=== PATIENT | male | born 1940 | race Caucasian/White ===

== ENCOUNTER 2018-05-04 14:40 | Emergency (ER) | payer MEDICARE, SELFPAY ==
[2018-05-04 14:51] VITALS: BP 88/48; PULSE 59; RESP 16; TEMP 36.9; O2SAT 96
--- NOTE | 2018-05-04 15:01 | DI.CT.S_ITS ---
PROCEDURE: CT HEAD/BRAIN WO CON INDICATIONS: Fall, dizzy. TECHNIQUE: Noncontrast 4.5 mm thick angled axial sections acquired from the foramen magnum to the vertex, with coronal and sagittal reformats. For radiation dose reduction, the following was used: automated exposure control, adjustment of mA and/or kV according to patient size. COMPARISON: [facility], CT, CT HEAD WITHOUT CONTRAST, 03/04/2018, 17:44. FINDINGS: Image quality: Suboptimal related to motion artifact on the upper portion of the brain.. CSF spaces: Basal cisterns are patent. No extra-axial fluid collections. Ventricles are prominent in size with corresponding parenchymal volume loss. This appearance is similar to the prior study. Septum pellucidum et vergae is noted. Brain: No midline shift. No intracranial masses or hemorrhage. Chapman-white matter interface is normal. Moderate sized areas of low attenuation are seen within the periventricular white matter of the supratentorial brain. Skull and face: Calvarium and visualized facial bones are intact, without suspicious lesions. 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 Sinuses: Visualized sinuses and mastoids are clear. IMPRESSION: 1. No acute intracranial hemorrhage. 2. Moderate chronic small vessel ischemic changes and parenchymal volume loss are similar to the prior study. Dictated by: Star Dodd M.D. on 05/04/2018 at 14:33 Approved by: Star Dodd M.D. on 05/04/2018 at 14:35
[2018-05-04 15:21] LABS: Add Manual Diff / Slide Review NO; Basophils Percent Auto 1.2 % (0-2); Hematocrit 31.9 % (41-53); Hemoglobin 11.1 g/dL (13.5-17.5); Lymphocytes Percent Auto 43.7 % (25-40); Mean Corpuscular HGB Conc 34.7 % (30-36); Mean Corpuscular Hemoglobin 33.7 PG (26-34); Mean Corpuscular Volume 97.1 fL (80-100); Monocytes Percent Auto 10.7 % (3-14); Neutrophils Absolute Auto 1300 /uL (3000-5900); Neutrophils Percent Auto 43.4 % (50-75); Platelet Count 208 X10^3/uL (150-400); Red Blood Cell Count 3.29 X10^6/uL (4.5-5.9); Red Cell Distribution Width 14.6 % (11.6-14.8); White Blood Cell Count 2.9 X10^3/uL (4.5-11.0)
[2018-05-04 15:27] LABS: INR 1.1 (0.9-1.3)
[2018-05-04 15:30] LABS: PTT Partial Thromboplastin Tim 36 SECONDS (26.4-36.2)
[2018-05-04 15:31] VITALS: BP 123/62; PULSE 61; RESP 15; O2SAT 97
[2018-05-04 15:33] LABS: Alanine Aminotransferase 24 IU/L (21-72); Albumin 3.8 g/dL (3.5-5.0); Albumin Globulin Ratio 1.2 (1.0-2.8); Alkaline Phosphatase 92 U/L (38-126); Aspartate Aminotransferase 32 IU/L (17-59); BUN Creatinine Ratio 6.7 (6-22); Bilirubin Total 1.3 mg/dL (0.2-1.3); Blood Urea Nitrogen 4 mg/dL (9-20); Calcium 8.7 mg/dL (8.4-10.2); Carbon Dioxide 21 mmol/L (22-32); Chloride 91 mmol/L (98-107); Estimated Glomerular Filt Rate > 60.0 mL/min (>60); Globulin 3.3 g/dL (1.7-4.1); Glucose 85 mg/dL (80-110); HEMOLYSIS 42 (0-50); Potassium 4.4 mmol/L (3.4-5.1); Sodium 128 mmol/L (137-145); Total Protein 7.1 g/dL (6.3-8.2)
[2018-05-04 15:40] LABS: Ethanol (ETOH) 397 mg/dL
[2018-05-04 16:09] VITALS: BP 93/46; PULSE 62; RESP 24; O2SAT 99
[2018-05-04 16:44] VITALS: BP 103/42; PULSE 62; RESP 15; O2SAT 98
--- NOTE | 2018-05-04 16:47 | ED_ITS ---
HPI - Fall General Chief Complaint: Fall Stated Complaint: Syncope Time Seen by Provider: 05/04/18 15:00 Source: patient and EMS Mode of arrival: EMS Limitations: other History of Present Illness HPI Narrative: Patient is a 77-year-old male found down, without signs of trauma. He is an extremely poor historian. He a friend supposedly called on 911. The medics report on alcohol on board. Patient is not giving up a lot of information. He denies any pain. He says the friend that called is mad at him. He has no complaints. He admits to drinking 3 beers. Related Data Home Medications Medication Instructions Recorded Confirmed brimonidine-timolol [Combigan] 1 drp OPHTH HS #0 09/26/16 05/04/18 timolol maleate [Timoptic] 1 drp OPHTH QDAY #0 09/26/16 05/04/18 famotidine 40 mg PO BID 05/04/18 05/04/18 latanoprost 1 drp OPHTHALMIC (EYE) DIRECTED 05/04/18 05/04/18 Allergies Allergy/AdvReac Type Severity Reaction Status Date / Time No Known Drug Allergies Allergy Verified 05/04/18 14:49 Review of Systems Constitutional Denies body ache(s), Denies fever(s) and Denies weakness Eyes Denies change in vision, Denies eye discharge, Denies irritation and Denies loss of vision ENT Ears, Nose, Mouth, and Throat: Denies change in voice, Denies neck pain and Denies sore throat Cardiovascular Denies chest pain, Denies irregular heart rhythm, Denies lightheadedness, Denies palpitations, Denies dyspnea, Denies dyspnea on exertion and Denies orthopnea Respiratory Denies cough, Denies dyspnea, Denies dyspnea on exertion and Denies wheezing Gastrointestinal Gastrointestinal: Denies abdominal pain, Denies change in bowel habits, Denies diarrhea, Denies nausea and Denies vomiting Musculoskeletal Denies neck pain Integumentary/Breasts Denies pruritus, Denies erythema, Denies rash and Denies wounds Neurologic Denies loss of vision and Denies weakness Endocrine Denies palpitations Allergic/Immunologic Denies wheezing Exam Initial Vital Signs Initial Vital Signs: Vital Signs Temperature 98.4 F 05/04/18 14:51 Pulse Rate 59 L 05/04/18 14:51 Respiratory Rate 16 05/04/18 14:51 Blood Pressure 88/48 L 05/04/18 14:51 Pulse Oximetry 96 05/04/18 14:51 Const General: cooperative and well developed Nutritional Appearance: average body habitus [facility] Head: normocephalic and atraumatic Ears: external ears normal Face and sinus: face symmetric Mouth: moist mucous membranes Eyes General: appearance normal, both eyes and all related structures Pupils: PERRL EOM: EOM intact bilaterally Neck Neck: normal visual inspection, trachea midline, No lymphadenopathy, No midline deformity and No JVD Chest Chest: normal inspection of the chest Resp Effort & Inspection: normal respiratory effort, able to speak in complete sentences, no respiratory distress and no use of accessory muscles Auscultation: clear to auscultation bilaterally, no rales, no rhonchi and no wheezes Cardio Rate: regular rate Rhythm: regular rhythm Heart Sounds: no click, no gallops, no murmurs and no rubs Pulses: normal peripheral pulses Back/Spine/Pelvis Back: No CVA tenderness Cervical Spine: cervical ROM normal and No pain with cervical ROM Thoracic/Lumbar Spine: thoracic and lumbar spine normal to inspection Skin General: no rashes or lesions noted, No jaundice and No petechiae Neuro General: alert, awake and oriented x3 Cranial Nerves: CN's II-XI intact bilaterally Speech: speech normal Gait: normal gait Motor: muscle tone normal throughout Extrem General: full ROM, no clubbing, cyanosis or edema and no pedal edema Right upper extremity: normal to inspection Left upper extremity: normal to inspection Right lower extremity: normal to inspection Left lower extremity: normal to inspection [facility] Social History Smoking Status: Unknown if ever smoked alcohol intake: current Course Orders Ordered: Discontinued Medications Sodium Chloride (Normal Saline 0.9%) 1,000 mls @ 150 mls/hr IV CONT THERON Last Admin: 05/04/18 17:30 Dose: Vital Signs - 8 hr 05/04/18 14:51 05/04/18 15:31 05/04/18 16:09 Temperature 98.4 F Pulse Rate 59 L 61 62 Respiratory Rate 16 15 24 Blood Pressure 88/48 L Blood Pressure [Right Arm] 123/62 H 93/46 L Pulse Oximetry 96 97 99 05/04/18 16:44 05/04/18 17:13 Temperature Pulse Rate 62 64 Respiratory Rate 15 13 Blood Pressure Blood Pressure [Right Arm] 103/42 L 109/54 L Pulse Oximetry 98 99 MDM - Fall Lab Data Attestation: I reviewed the patient's lab results. Result diagrams: 05/04/18 14:30 05/04/18 14:30 Lab Results 05/04/18 05/04/18 05/04/18 Range/Units 14:30 14:30 14:30 WBC 2.9 L (4.5-11.0) X10^3/uL RBC 3.29 L (4.5-5.9) X10^6/uL Hgb 11.1 L (13.5-17.5) g/dL Hct 31.9 L (41-53) % MCV 97.1 (80-100) fL MCH 33.7 (26-34) PG MCHC 34.7 (30-36) % RDW 14.6 (11.6-14.8) % Plt Count 208 (150-400) X10^3/uL Neut % (Auto) 43.4 L (50-75) % Lymph % (Auto) 43.7 H (25-40) % Hand % (Auto) 10.7 (3-14) % Eos % (Auto) 1.0 L (2-4) % Baso % (Auto) 1.2 (0-2) % Neut # (Auto) 1300 L (0758-9809) /uL PT 12.0 (10.1-12.7) SECONDS INR 1.1 (0.9-1.3) APTT 36 (26.4-36.2) SECONDS Sodium 128 L (137-145) mmol/L Potassium 4.4 (3.4-5.1) mmol/L Chloride 91 L (98-107) mmol/L Carbon Dioxide 21 L (22-32) mmol/L BUN 4 L (9-20) mg/dL Creatinine 0.60 L (0.66-1.25) mg/dL Estimated GFR > 60.0 (>60) mL/min BUN/Creatinine Ratio 6.7 (6-22) Glucose 85 (80-110) mg/dL Calcium 8.7 (8.4-10.2) mg/dL Total Bilirubin 1.3 (0.2-1.3) mg/dL AST 32 (17-59) IU/L ALT 24 (21-72) IU/L Alkaline Phosphatase 92 (38-126) U/L Total Protein 7.1 (6.3-8.2) g/dL Albumin 3.8 (3.5-5.0) g/dL Globulin 3.3 (1.7-4.1) g/dL Albumin/Globulin Ratio 1.2 (1.0-2.8) Ethyl Alcohol 397 mg/dL Imaging Data CT scan - head: Radiologist's impression: INDICATIONS: Fall, dizzy. TECHNIQUE: Noncontrast 4.5 mm thick angled axial sections acquired from the foramen magnum to the vertex, with coronal and sagittal reformats. For radiation dose reduction, the following was used: automated exposure control, adjustment of mA and/or kV according to patient size. COMPARISON: [facility], CT, CT HEAD WITHOUT CONTRAST, 03/04/2018, 17 :44. FINDINGS: Image quality: Suboptimal related to motion artifact on the upper portion of the brain.. CSF spaces: Basal cisterns are patent. No extra-axial fluid collections. Ventricles are prominent in size with corresponding parenchymal volume loss. This appearance is similar to the prior study. Septum pellucidum et vergae is noted. Brain: No midline shift. No intracranial masses or hemorrhage. Chapman-white matter interface is normal. Moderate sized areas of low attenuation are seen within the periventricular white matter of the supratentorial brain. Skull and face: Calvarium and visualized facial bones are intact, without suspicious lesions. 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 Sinuses: Visualized sinuses and mastoids are clear. IMPRESSION: 1. No acute intracranial hemorrhage. 2. Moderate chronic small vessel ischemic changes and parenchymal volume loss are similar to the prior study. Dictated by: Star Dodd M.D. on 05/04/2018 at 14:33 ECG Data Attestation: I personally reviewed and interpreted this ECG as follows: Prior ECG tracings: available for review Interpretation: Normal sinus rhythm rate 58 T-wave inversion noted in lead 3 it was present in 2016 no acute change MDM Narrative Medical decision making narrative: Last blood work is from 2016 WBC was 3.7 that time seems to always be low. Sodium today is 128 I suspect this is from drinking. Previously this was within normal limits. 5:45 p.m. steady gait with a walker no slurring of speech. Patient says he has 2 walkers at home. He is happy to take a cab home. Discharge Plan Departure Patient Disposition: Home, Self-Care Clinical Impression: Alcohol intoxication Discharge Date/Time: 05/04/18 17:58 Interventions: ED Discharge Assessment Last Done: 05/04/18 17:58 Instructions: DI for Alcohol Abuse Activity Restrictions/Additional Instructions: *You have been diagnosed with alcohol intoxication *What to do: Recommend stop drinking alcohol under physician supervision *Continue to take medications as directed *Follow up with your primary care provider in 2-3 days *Return to ER if you should have any new, worsening or concerning symptoms Prescriptions: No Action timolol maleate [Timoptic] 0.25 % drops 1 drp OPHTH QDAY Qty: 0 RF: 0 brimonidine-timolol [Combigan] 0.2 %/0.5 % drops 1 drp OPHTH HS Qty: 0 RF: 0 latanoprost 0.005 % Drops 1 drp ophthalmic (eye) DIRECTED RF: 0 famotidine 40 mg Tablet 40 mg PO BID RF: 0
[2018-05-04 17:13] VITALS: BP 109/54; PULSE 64; RESP 13; O2SAT 99
== END 2018-05-04 17:58 | disposition home or self-care (01) ==
PROVIDERS: Emergency Provider Emergency Medicine
DX: F10.929 Alcohol use, unspecified with intoxication, unspecified (principal)
CPT/HCPCS: 70450; 80053; 80320; 85025; 85610; 85730; 93005; 99284; 99285